=== PATIENT | female | born 1965 | race Caucasian/White ===

== ENCOUNTER 2018-02-17 10:03 | Emergency (ER) | payer MEDICAID ==
[2018-02-17] MEDS: HYDROCODONE/APAP (5/325) TAB PO (10:24)
[2018-02-17] MEDS: ONDANSETRON (ODT) 4 MG TAB ODT (10:24)
== END 2018-02-17 11:51 | disposition home or self-care (01) ==
LOC: FTE 10:03
DX: M54.2 Cervicalgia (principal); R51 Headache
CPT/HCPCS: 70450; 72125; 99285-25